=== PATIENT | male | born 1985 | race Caucasian/White ===

== ENCOUNTER 2020-06-20 07:45 | Emergency (ER) | payer OTHER, SELFPAY ==
[2020-06-20 07:50] VITALS: BP 168/106; BP 168/110; PULSE 110; PULSE 113; RESP 16; TEMP 36.7; O2SAT 100; O2SAT 99; BMI 27.1
--- NOTE | 2020-06-20 07:52 | ED.OVERDOSE ---
HPI - Overdose General Chief Complaint: ETOH/Substance Use Stated Complaint: overdose Time Seen by Provider: 06/20/20 07:51 Source: patient and EMS Mode of arrival: EMS Limitations: no limitations History of Present Illness HPI Narrative: 34-year-old male history of IV drug abuser, patient also on methadone, patient at 06:00 o'clock used 2 bags of IV heroin, patient was found by a family member in the bathroom unresponsive, patient was given by EMS nasal Narcan x3 total of 12 mg patient had Ambu bag ventilation and patient started to regain consciousness, CPR was never started. Patient feeling nauseous and vomited couple times. Patient in the emergency department is awake, alert, oriented x3. Patient declined SI or HI or hallucination. Related Data Allergies Allergy/AdvReac Type Severity Reaction Status Date / Time No Known Allergies Allergy Unverified 12/15/19 16:14 [No Known Allergies*] Review of Systems Review of Systems: All other systems are reviewed and are negative Constitutional: Reports as per HPI and Reports no additional constitutional complaints Eyes: Reports as per HPI and Reports no additional eye complaints Reports system reviewed and no additional complaints, except as documented Cardiovascular: Reports as per HPI and Reports no additional cardiovascular complaints Respiratory: Reports as per HPI and Reports no additional respiratory complaints Gastrointestinal: Reports as per HPI and Reports no additional gastrointestinal complaints Genitourinary: Reports no additional female genitourinary complaints Musculoskeletal: Reports no additional musculoskeletal complaints Skin/Breast: Reports system reviewed and no additional complaints, except as docu Psychiatric: Reports no additional psychiatric complaints Endocrine: Reports no additional endocrine complaints Hematologic/Lymphatic: Reports no additional hematologic/lymphatic complaints Allergic/Immunologic: Reports no additional allergic/immunologic complaints Reports system reviewed and no additional complaints, except as documented and Reports Abnormal speech present [facility] Past Medical History Medical History No known health problems Social History Social History Smoking Status: Current every day smoker Use of substances other than those prescribed or required for medical reasons: Yes Substance Use Type: Crack/Cocaine and Heroin Advance Directives: No Advance Directives Information Provided: No Physical Exam Vital Signs: Vital Signs: Last Vital Signs Temp 98.0 F 06/20/20 07:50 Pulse 88 06/20/20 10:33 Resp 16 06/20/20 10:33 BP 100/46 L 06/20/20 10:33 Pulse Ox 95 06/20/20 10:33 Body Mass Index 27.1 Vital signs have been reviewed as appeared to be correct. Blood pressure normal. Heart rate normal. Respiration rate normal. Temperature normal. Oxygen saturation normal. Appearance: Alert. Oriented X3. No acute distress. Head: Normal external exam. Normocephalic. Atraumatic. No Chi signs noted. No raccoon eyes noted Eyes: PERRLA. EOMI. Conjunctiva and sclera normal. Eyelids normal. ENT: TM's Normal. Pharynx normal. Uvula midline. Moist mucous membranes. No trismus noted. No drooling noted. No muffled voice noted. Neck: Normal inspection. Neck supple. FROM. No adenopathy. Thyroid Normal. No meningeal signs. No neck mass noted. CVS: Normal heart rate and rhythm. Heart sound normal. No murmurs noted. Pulses normal throughout. Respiratory: No respiratory distress. Painless inspiration. Breath sounds normal. No wheezes/rales/rhonchi noted. Chest nontender. No accessory muscle usage noted or decreased air movement noted. Abdomen: Soft and nontender. Bowel sounds normal in all 4 quadrants. No distention noted. No organomegaly noted. No visible injury noted. Back: No CVA tenderness. Full range of motion noted. Skin: Skin warm and dry. Normal skin color. Normal skin turgor. No rashes/lesions/lacerations noted. Extremities: No lower extremity edema. Extremities exhibit normal range of motion. Extremities nontender. Neuro: Oriented X 3. No motor deficit. No sensory deficit. Reflexes normal. Course Course Course Narrative: 34-year-old male brought in after found unresponsive in the bathroom after using IV heroin, patient responded to Narcan, patient was observed in the emergency department patient is back to his baseline. Patient was evaluated by our care team, patient will be referred to rehab program at [facility] just requiring COVID testing. Discharge Plan Discharge Clinical Impression: Accidental heroin overdose Qualifiers: Encounter type: initial encounter Qualified Code(s): T40.1X1A - Poisoning by heroin, accidental (unintentional), initial encounter Patient Disposition: Home, Self-Care Instructions: Adult Overdose (ED) Additional Instructions: Follow-up with primary doctor. Referrals: Shea Macdonald PA [Primary Care Provider] - 2 days
[2020-06-20 08:20] VITALS: RESP 16; O2SAT 98
[2020-06-20 09:00] VITALS: PULSE 103; O2SAT 95
--- NOTE | 2020-06-20 10:13 | PC.NURSE ---
patient no longer vomiting after medicated with SL zofran. patient sleeping off and on. wakes easily to voice.
[2020-06-20 10:33] VITALS: BP 100/46; PULSE 88; RESP 16; O2SAT 95
--- NOTE | 2020-06-20 10:46 | MHC.RECOVSUP ---
Recovery Support note: Patient is a 34 year old Mongolian speaking male who presented to [facility] ED via EMS after an accidental overdose. This verse writer met with patient to discuss recovery and treatment options. Patient reports he started using again a week or so ago and that he is interested in getting into a detox facility for treatment. Patient reports he is on methadone and finds it helpful however he has not been attending meetings recently. Patient has been referred to [facility] and his information is currently being reviewed. [facility] requested a COVID test which is being processed. Patient met with Special Education Instructor, Keanu, who discussed [employer] recovery and recovery supports with patient. Patient was receptive and accepted resources offered. This verse writer will follow up with [facility] to determine if patient has been accepted for admission. RN and MD carroll.
[2020-06-20 10:58] LABS: COVID-19 Test Negative (Negative)
--- NOTE | 2020-06-20 12:18 | MHC.RECOVSUP ---
Recovery Support note: Patient has been accepted to [facility] for a 1415 admission time. Patient has completed the phone intake. RN will complete N-N. Palliative Care Nurse to arrange transportation via [employer] or [facility] Shuttle.
== END 2020-06-20 13:47 | disposition home or self-care (01) ==
PROVIDERS: Emergency Provider Emergency Medicine; PCP Physician Assistant Medical
DX: T40.1X1A Poisoning by heroin, accidental (unintentional), initial encounter (principal); Y92.9 Unspecified place or not applicable; F11.10 Opioid abuse, uncomplicated; F14.10 Cocaine abuse, uncomplicated; Z71.51 Drug abuse counseling and surveillance of drug abuser; Z20.822 Contact with and (suspected) exposure to COVID-19
CPT/HCPCS: 36415; 87635; 99284

== ENCOUNTER 2020-07-15 09:16 | Emergency (ER) | payer OTHER, SELFPAY ==
--- NOTE | ~2020-07-15 | XR_ITS ---
EXAMINATION: XR HUMERUS, RIGHT CLINICAL INFORMATION: Redness in biceps. Concern for osteomyelitis. COMPARISON: None TECHNIQUE: AP and lateral views of the right humerus. FINDINGS: Subcutaneous soft tissue swelling is noted in the lower portion of the upper arm. No bony abnormality is demonstrated. There is no evidence for osteomyelitis. The biceps muscle appears retracted distally concerning for possible rupture. Clinical correlation will be helpful. XR/XR humerus RT IMPRESSION: 1. Question biceps rupture. 2. No bony abnormality. No evidence for osteomyelitis.
--- NOTE | ~2020-07-15 | US_ITS ---
EXAMINATION: ULTRASOUND EXTREMITY NONVASCULAR.. CLINICAL INFORMATION: Swelling, drug use. Question right biceps abscess COMPARISON: None TECHNIQUE: Limited ultrasound imaging performed above the elbow joint where patient has swelling FINDINGS: There is a heterogenous area seen with a solid and cystic debris with peripheral increased flow/vascularity just above the antecubital fossa suggestive of small abdomen abscess and phlegmon. It measures approximately 3.2 x 2.8 x 1.8 cm. US/US extremity nonvascular IMPRESSION: Likely a small abscess, phlegmon or combination superior to the right antecubital fossa.
--- NOTE | ~2020-07-15 | US_ITS ---
EXAMINATION: US VENOUS WITH DOPPLER UPPER EXTREMITY, RIGHT CLINICAL INFORMATION: Right biceps abscess. Rule out DVT COMPARISON: None TECHNIQUE: Ultrasound of the upper extremity is performed using compression sonography and color and pulse Doppler flow with assessment of augmentation of flow. There is also imaging and Doppler assessment of the jugular and subclavian veins. Spectral analysis with color-flow imaging is performed. FINDINGS: Respiratory variation, normal compression, and augmented flow are noted throughout the upper extremity including the axillary, brachial, cubital, and radial and ulnar veins. There is normal flow in the internal jugular and subclavian veins. There is no visible deep or superficial thrombophlebitis. If the patient's symptoms progress, a followup ultrasound in 5 -7 days might be of value to exclude proximal propagation from a nonvisualized distal arm vein. US/US venous duplex UE RT IMPRESSION: No DVT demonstrated in the right upper extremity.
[2020-07-15 09:48] VITALS: BP 152/80; PULSE 122; RESP 18; TEMP 37.2; O2SAT 96; BMI 27.8
--- NOTE | 2020-07-15 09:58 | ED_ITS ---
HPI - Skin/Abscess/Foreign Bdy General Chief complaint: Skin/Abscess/Foreign Body Stated complaint: ABSCESS Time Seen by Provider: 07/15/20 09:38 Source: patient Mode of arrival: ambulatory Limitations: no limitations History of Present Illness HPI narrative: Patient presents to ED for right biceps abscess. Patient denies any recent trauma to the area. States may having been devices cause little pimple and then he tried to pop up with a needle and then the swelling occurred. Patient admits to being an IV drug user but patient denies injecting IV drugs into the biceps. Patient states he injects IV drug use only into his forearm or antecubital. Related Data Previous Rx's Medication Instructions Recorded cephalexin 500 mg PO Q6H 7 Days #28 cap 07/15/20 doxycycline hyclate 100 mg PO BID #20 cap 07/15/20 naproxen 500 mg PO BID PRN #20 tab 07/15/20 Allergies Allergy/AdvReac Type Severity Reaction Status Date / Time No Known Allergies Allergy Verified 07/15/20 09:54 [No Known Allergies*] Review of Systems Review of Systems: Yes all other systems are reviewed and are negative Constitutional: Constitutional: Reports as per HPI and Reports no additional constitutional complaints Eyes: Eyes: Reports as per HPI and Reports no additional eye complaints ENT: Reports system reviewed and no additional complaints, except as documented and Reports as per HPI Cardiovascular: Cardiovascular: Reports as per HPI and Reports no additional cardiovascular complaints Respiratory: Respiratory: Reports as per HPI and Reports no additional respiratory complaints Gastrointestinal: Gastrointestinal: Reports as per HPI and Reports no additional gastrointestinal complaints Genitourinary: Genitourinary: Reports no additional male genitourinary complaints and Reports as per HPI Musculoskeletal: Musculoskeletal: Reports no additional musculoskeletal complaints and Reports as per HPI Comments: Right biceps abscess Neurologic: Reports system reviewed and no additional complaints, except as documented and Reports as per HPI Psychiatric: Psychiatric: Reports no additional psychiatric complaints and Reports as per HPI PMFSH Past Medical History Medical History No known health problems Social History Social History Alcohol intake: unknown Smoking Status: Current every day smoker Smoked in Last 30 Days: Yes Use of substances other than those prescribed or required for medical reasons: Yes Substance Use Type: Heroin Substance Use Frequency: Chronic Longstanding Last Used Substance: Just Prior to Admission Any prior treatment program specific to substance use: No Advance Directives: Yes Advance Directives Information Provided: Yes Advance Directives on File: No Physical Exam Vital Signs: Vital Signs: Last Vital Signs Temp 98.9 F 07/15/20 13:30 Pulse 65 07/15/20 13:30 Resp 18 07/15/20 13:30 BP 116/56 L 07/15/20 13:30 Pulse Ox 95 07/15/20 13:30 Body Mass Index 27.8 Const: General: cooperative, healthy appearing, comfortable, no acute distress, well developed, alert, awake and Physically active Orientat ion/consciousness: patient oriented x3 HENMT: Head: Yes normal to inspection and Yes No palpable skull fracture present Eyes: General: appearance normal, both eyes and all related structures Neck: Neck: Yes normal visual inspection, Yes full ROM, Yes no lymphadenopathy, Yes no meningeal signs, Yes trachea midline, Yes supple and No tender Chest: Chest palpation & inspection: normal inspection of the chest and normal palpation of entire chest wall Resp: Effort & Inspection: normal respiratory effort and able to speak in complete sentences Auscultation: clear to auscultation bilaterally Cardio: Jugular venous distension: no JVD Heart sounds: S1 normal heart sound present and S2 normal heart sound present GI: Inspection: Yes normal to inspection and No abdominal wall ecchymosis Palpation (GI): Soft to palpation, not firm, nontender, no guarding and not rig id Skin: Other: Right upper arm/biceps abscess. Neuro: General: patient oriented x3, no meningeal signs and CN's II-XI intact bilaterally Cranial nerves: Yes CN's II-XII intact bilaterally Extrem: Other: Right upper extremity: Positive for golf size ball mass on the right biceps with erythema, tenderness, and point of entry. Some right upper extremity negative for swelling, tenderness, or mass. Radial and brachial pulses intact. Neuro exam is intact. Patient has complete range of motion right upper extremity. Biceps does not look contracted. Psych: Appearance: grossly normal, well kempt and not disheveled Course Course Course Narrative: History physical exam indicate abscess. Patient is afebrile. Patient complains of mild pain. Patient tachycardic will give oral fluids. Patient also admits to using 2 bags of heroin this morning. Will not give narcotics due to history of substance abuse. Mode patient denies injecting IV drugs directly into biceps will send patient for ultrasound right upper extremity to make sure there is no superficial blood clot or DVT. Also will send patient for x-ray to make sure there is no osteomyelitis. Presently labs not indicated. Will recheck vital signs. Bedside ultrasound was done which showed nodular shows absent that could be drained. Plan is to drain abscess after x-ray and ultrasound reading. Reevaluation(s) Reevaluation #1: X-ray reading shows possible biceps rupture. With patient having abscess clinically and x-ray reading of biceps rupture may need to call Orthopedics to make sure abscess is not in the muscle and may need surgical intervention. Will order labs. Reevaluation #2: Vanc and Zosyn ordered. Extremity ultrasound results negative for DVT and shows superficial abscess. will call orthopedic PA on-call to see if this is the case with patient be admitted for OR incision and drainage or it could be done by me in the ER and discharge. Reevaluation #3: Spoke with PA tomorrow of orthopedic who states this is not a surgical issue and patient does not need any operating room drainage. She recommends abscess being drained the ED. As per ultrasound abscess very superficial. Spoke with patient medicine admission for IV antibiotics to help the abscess with a cellulitis heal better, but patient refused. Patient states he rahter start a trial of oral antibiotics and see if improved. MDM - Skin/Abscess/Foreign Bdy MDM Narrative Medical decision making narrative: Abscess cellulitis Lab Data Result diagrams: 07/15/20 13:07 07/15/20 13:07 Labs: Lab Results 07/15/20 07/15/20 07/15/20 Range/Units 13:07 13:07 13:07 WBC 10.0 (4.8-10.8) X10*3/uL RBC 4.52 L (4.60-5.80) X10*6/uL Hgb 13.1 L (14.0-18.0) g/dl Hct 40.3 L (42-52) % MCV 89.2 (80-98) fL MCH 29.0 (27.0-33.0) pg MCHC 32.5 (31.0-36.0) g/dl RDW 13.0 (11.0-16.0) % Plt Count 275 (160-400) X10*3/uL MPV 10.4 (9.4-12.4) fL Immature Gran % (Auto) 0.2 (0.0-0.4) % Neut % (Auto) 65.4 (45-73) % Lymph % (Auto) 22.4 (20-40) % [place] % (Auto) 10.3 (2-11) % Eos % (Auto) 1.5 (0-4) % Baso % (Auto) 0.2 (0-2) % Lymph # (Auto) 2.3 (1.2-4.9) X10*3/uL [place] # (Auto) 1.0 (0.1-1.2) X10*3/uL Eos # (Auto) 0.2 (0.0-0.4) X10*3/uL Baso # (Auto) 0.0 (0.0-0.2) X10*3/uL Abs Immat Gran (auto) 0.02 (0.00-0.03) X10*3/uL Absolute Neuts (auto) 6.6 (2.0-8.3) X10*3/uL Absolute Nucleated RBC 0.000 (0.0-0.012) X10*3/uL Nucleated RBC % (auto) 0.0 (0.0-0.2) /100WBC ESR 38 H (0-15) MM/HR PT (10.8-13.0) SEC INR (0.9-1.1) APTT (24.1-38.0) SEC Sodium 136 (135-145) mmol/L Potassium 4.5 (3.3-5.1) mmol/L Chloride 98 (96-108) mmol/L Carbon Dioxide 29 (22-29) mmol/L Anion Gap 14 (12-20) BUN 12 (9-16) mg/dL Creatinine 0.92 (0.5-1.4) mg/dL Estim Creat Clear Calc 126.5 Estimated GFR > 60 Random Glucose 94 (60-115) mg/dL Lactic Acid (0.5-2.0) mmol/L Calcium 8.7 (8.4-10.2) mg/dL Total Bilirubin 0.7 (0.0-1.0) mg/dL AST 15 (5-37) U/L ALT 14 (0-40) U/L Alkaline Phosphatase 69 (39-117) U/L C-Reactive Protein 9.11 H (< or = 0.50) mg/dL Total Protein 7.3 (6.5-8.0) g/dL Albumin 4.2 (3.5-5.0) g/dL 07/15/20 07/15/20 Range/Units 13:07 13:07 WBC (4.8-10.8) X10*3/uL RBC (4.60-5.80) X10*6/uL Hgb (14.0-18.0) g/dl Hct (42-52) % MCV (80-98) fL MCH (27.0-33.0) pg MCHC (31.0-36.0) g/dl RDW (11.0-16.0) % Plt Count (160-400) X10*3/uL MPV (9.4-12.4) fL Immature Gran % (Auto) (0.0-0.4) % Neut % (Auto) (45-73) % Lymph % (Auto) (20-40) % [place] % (Auto) (2-11) % Eos % (Auto) (0-4) % Baso % (Auto) (0-2) % Lymph # (Auto) (1.2-4.9) X10*3/uL [place] # (Auto) (0.1-1.2) X10*3/uL Eos # (Auto) (0.0-0.4) X10*3/uL Baso # (Auto) (0.0-0.2) X10*3/uL Abs Immat Gran (auto) (0.00-0.03) X10*3/uL Absolute Neuts (auto) (2.0-8.3) X10*3/uL Absolute Nucleated RBC (0.0-0.012) X10*3/uL Nucleated RBC % (auto) (0.0-0.2) /100WBC ESR (0-15) MM/HR PT 12.1 (10.8-13.0) SEC INR 1.0 (0.9-1.1) APTT 39.0 H (24.1-38.0) SEC Sodium (135-145) mmol/L Potassium (3.3-5.1) mmol/L Chloride (96-108) mmol/L Carbon Dioxide (22-29) mmol/L Anion Gap (12-20) BUN (9-16) mg/dL Creatinine (0.5-1.4) mg/dL Estim Creat Clear Calc Estimated GFR Random Glucose (60-115) mg/dL Lactic Acid 1.0 (0.5-2.0) mmol/L Calcium (8.4-10.2) mg/dL Total Bilirubin (0.0-1.0) mg/dL AST (5-37) U/L ALT (0-40) U/L Alkaline Phosphatase (39-117) U/L C-Reactive Protein (< or = 0.50) mg/dL Total Protein (6.5-8.0) g/dL Albumin (3.5-5.0) g/dL Discharge Plan Discharge Clinical Impression: Abscess of skin or subcutaneous tissue Patient Disposition: Home, Self-Care Instructions: Abscess (ED), Abscess Incision and Drainage (DC) Additional Instructions: Return to the ED immediately for worsening arm pain, chest pain, shortness of breath, fever, chills, worsening redness, or any other concerning symptoms. Return to the ED in 2 days for re-evaluation of wound and repacking. Prescriptions: New doxycycline hyclate 100 mg capsule 100 mg PO BID Qty: 20 RF: 0 cephalexin 500 mg capsule 500 mg PO Q6H 7 Days Qty: 28 RF: 0 naproxen 500 mg tablet 500 mg PO BID PRN (Reason: pain) Qty: 20 RF: 0 Stand Alone Forms: Work/School Release Interventions: ED Discharge Assessment Last Done: 07/15/20 15:23 Discharge Date/Time: 07/15/20 15:24 Print Language: Lithuanian
[2020-07-15] MEDS: Ibuprofen 800 MG TABLET PO (10:08)
[2020-07-15] MEDS: Diphth,Pertus(ACell),Tet Adult 0.5 ML SYRINGE IM (10:09)
[2020-07-15] MEDS: Lidocaine HCl 2 % MPF 5 ML VIAL INFILTRATI ×2 (10:09)
[2020-07-15 10:34] VITALS: PULSE 88; RESP 18; O2SAT 96
[2020-07-15 10:59] VITALS: RESP 18
--- NOTE | 2020-07-15 12:16 | PC.NURSE ---
PT GONE FOR US.
--- NOTE | 2020-07-15 12:42 | PC.NURSE ---
PT TOUGH STICK, SECOND RN TO TRY IV.
[2020-07-15 13:14] LABS: MANUAL DIFF FLAG NO
[2020-07-15] MEDS: 0.9 % Sodium Chloride 1,000 ML 999 ML IV (13:15)
[2020-07-15 13:16] LABS: Basophils Percent Auto 0.2 % (0-2); Eosinophils Absolute Auto 0.2 X10*3/uL (0.0-0.4); Eosinophils Percent Auto 1.5 % (0-4); Hematocrit 40.3 % (42-52); Hemoglobin 13.1 g/dl (14.0-18.0); Imm Gran Abs Auto 0.02 X10*3/uL (0.00-0.03); Imm Gran Pct Auto 0.2 % (0.0-0.4); Lymphocytes Absolute Auto 2.3 X10*3/uL (1.2-4.9); Lymphocytes Percent Auto 22.4 % (20-40); Mean Corpuscular HGB Conc 32.5 g/dl (31.0-36.0); Mean Corpuscular Volume 89.2 fL (80-98); Mean Platelet Volume 10.4 fL (9.4-12.4); Monocytes Percent Auto 10.3 % (2-11); Neutrophils Absolute Auto 6.6 X10*3/uL (2.0-8.3); Neutrophils Percent Auto 65.4 % (45-73); Platelet Count 275 X10*3/uL (160-400); Red Blood Count 4.52 X10*6/uL (4.60-5.80)
--- NOTE | 2020-07-15 13:17 | MHC.RECOVSUP ---
Recovery Support note: Patient is a 34 year old Nicaraguan speaking male who presented to [facility] ED due to an abscess. Patient is known to this automobile service writer from a previous consultation. Patient was sent to [place] for ATS on 06/20. Patient reports he lives in a tent and has not been maintaining sobriety since discharge from [facility]. This automobile service writer discussed MOUD with patient. Patient reports he has had good success with methadone in the past however he did not like having to go everyday. Patient has tried Suboxone however reports it caused him to feel nauseous. Discussed Sublocade injection with patient. Patient reports he is interested in this and that he can tolerate the Suboxone until he is able to get an injection. Discussed the [facility] with patient and provided patient with information on walk-in hours. Patient provided with number for this automobile service writer in the event that he would like an appointment outside of walk in hours.
[2020-07-15] MEDS: Piperacillin Sodium/Tazobactam 3.375 GM in 0.9 % Sodium Chloride 50 ML IV (13:28)
[2020-07-15 13:29] LABS: Prothrombin Time 12.1 SEC (10.8-13.0)
[2020-07-15 13:30] VITALS: BP 116/56; PULSE 65; RESP 18; TEMP 37.2; O2SAT 95
[2020-07-15 13:38] LABS: Alanine Aminotransferase 14 U/L (0-40); Albumin Level 4.2 g/dL (3.5-5.0); Alkaline Phosphatase 69 U/L (39-117); Anion Gap 14 (12-20); Aspartate Amino Transferase 15 U/L (5-37); Bilirubin Total 0.7 mg/dL (0.0-1.0); Blood Urea Nitrogen 12 mg/dL (9-16); C Reactive Protein 9.11 mg/dL (< or = 0.50); Calcium 8.7 mg/dL (8.4-10.2); Carbon Dioxide 29 mmol/L (22-29); Chloride 98 mmol/L (96-108); Creatinine Clr Calc Pharmacy 126.5; Estimated Glomerular Filt Rate > 60; Glucose Random 94 mg/dL (60-115); Potassium 4.5 mmol/L (3.3-5.1); Sodium 136 mmol/L (135-145); Total Protein 7.3 g/dL (6.5-8.0)
--- NOTE | 2020-07-15 13:50 | PC.NURSE ---
PT UP OOB TO BATHROOM FOR 3RD TRIP. PT APPEARING ANXIOUS NOW, COOPERATIVE, TOLERATING IV ANTIBIOTICS.
[2020-07-15] MEDS: vancomycin HCL 1,250 MG in 0.9 % Sodium Chloride 250 ML 166.67 MG IV (13:52)
[2020-07-15 14:02] LABS: Erythrocyte Sedimentation Rate 38 MM/HR (0-15)
[2020-07-15] MEDS: LORazepam 1 MG TABLET PO (14:03)
== END 2020-07-15 15:24 | disposition home or self-care (01) ==
PROVIDERS: Physician Assistant; Emergency Provider Emergency Medicine
DX: L02.413 Cutaneous abscess of right upper limb (principal); F11.10 Opioid abuse, uncomplicated; R60.0 Localized edema; F17.200 Nicotine dependence, unspecified, uncomplicated; Z71.6 Tobacco abuse counseling; Z79.899 Other long term (current) drug therapy
CPT/HCPCS: 10060; 36415; 73060; 76882; 80053; 83605; 85025; 85610; 85652; 85730; 86140; 87040; 87071; 87076; 87077; 87147; 87186; 87205; 90471; 90715; 93971; 96360; 99284; J2543; J3370

== ENCOUNTER 2020-07-17 16:55 | Emergency (ER) | payer OTHER, SELFPAY ==
[2020-07-17 18:19] VITALS: BP 110/69; PULSE 63; RESP 16; TEMP 36.8; O2SAT 100; BMI 27.7
--- NOTE | 2020-07-17 18:21 | ED.WOUNDLAC ---
HPI - Wound/Laceration General Stated Complaint: wound check Time Seen by Provider: 07/17/20 17:28 Source: patient Mode of arrival: ambulatory Limitations: no limitations History of Present Illness HPI narrative: 34-year-old male presents for wound check. Was tested positive for blood culture which could possibly be a contaminate on his prior visit on July 15, 2020. He does not report any fevers, chills, chest pain or pressure, palpitations, weakness, diaphoresis, nausea, vomiting, or any other concerning symptoms. He states that his wound is feeling much better. Onset (ago): day(s) Extremity Location: right: arm Place: other Patient tetanus UTD: Yes Context: other Associated symptoms: none Related Data Previous Rx's Medication Instructions Recorded cephalexin 500 mg PO Q6H 7 Days #28 cap 07/15/20 doxycycline hyclate 100 mg PO BID #20 cap 07/15/20 naproxen 500 mg PO BID PRN #20 tab 07/15/20 Allergies Allergy/AdvReac Type Severity Reaction Status Date / Time No Known Allergies Allergy Verified 07/15/20 09:54 [No Known Allergies*] Review of Systems Review of Systems: Constitutional: No Fever, No Chills ENT/Mouth: No Ear Pain, No Hoarseness, No sore throat Eyes: No Eye Pain, No Swelling, No Redness, No Foreign Body Cardiovascular: No Chest Pain, No SOB Respiratory: No Cough, No Dyspnea Gastrointestinal: No Nausea, No Vomiting, No Diarrhea, No abdominal Pain Genitourinary: No Dysuria, No Hematuria Musculoskeletal: positive right arm pain, No Myalgias, No Joint Swelling Skin: No Skin lacerations, No rash Neuro: No Weakness, No Numbness, No Paresthesias, No Loss of Consciousness, No Dizziness, No Headache Psych: No Anxiety/Panic, No Depression Heme/Lymph: no easy bruising, no Lymphadenopathy Endocrine: No Polyuria, No Polydipsia Yes all other systems are reviewed and are negative [facility] Past Medical History Attestation statement: The following information was validated with the patient. Source: old records reviewed Medical History No known health problems Social History Social History Alcohol intake: unknown Smoking Status: Current every day smoker Substance Use Type: Heroin Advance Directives: No Advance Directives Information Provided: Yes Physical Exam Vital Signs: Vital Signs: Last Vital Signs Temp 98.2 F 07/17/20 18:19 Pulse 63 07/17/20 18:19 Resp 16 07/17/20 18:19 BP 110/69 07/17/20 18:19 Pulse Ox 100 07/17/20 18:19 Body Mass Index 27.7 Appearance: Alert. Oriented X3. No acute distress. Eyes: Pupils equal, round and reactive to light. ENT: Pharynx normal. Neck: Normal inspection. Neck supple. CVS: Normal heart rate and rhythm. Pulses normal. Respiratory: No respiratory distress. Breath sounds normal. Abdomen: Soft and nontender. Skin: Left biceps wound with erythema, multiple track stover to bilateral upper extremities Extremities: No lower extremity edema. Moves all extremities against resistance, strength 5/5, full range of motion. Neuro: No motor deficit. No sensory deficit. Course Course Course Narrative: 34-year-old male with known abscess to biceps currently on Keflex and doxycycline presents for wound evaluation and repeat lab values for a singular positive blood culture with Gram-positive cocci. Multiple attempts for blood failed by this [employer], patient IVDA active, and is a very poor stick. Lab called for phlebotomy services. Patient eloped from the emergency department. MDM - Wound/Laceration Differential Diagnosis Differential diagnosis: Likely abscess Medical Records Attestation: I reviewed the patient's medical records. Lab Data Attestation: I reviewed the patient's lab results. Discharge Plan Discharge Clinical Impression: Wound check, abscess Patient Disposition: Elopement Instructions: Wound Infection (ED), Wound Healing and Your Diet (ED) Additional Instructions: Please return tomorrow for repeat wound check. We repeated your CBC, chemistries, lactic acid and blood cultures. You did have 1 positive blood culture which is why repeated these labs. Your wound appears to be healing well. Please continue to take your antibiotics. We will call you with your test results per your request. Thank you for choosing this emergency department for evaluation. Please follow-up with primary care physician as needed. Return to the emergency department for any new, concerning, or worsening symptoms. Prescriptions: No Action doxycycline hyclate 100 mg capsule 100 mg PO BID Qty: 20 RF: 0 cephalexin 500 mg capsule 500 mg PO Q6H 7 Days Qty: 28 RF: 0 naproxen 500 mg tablet 500 mg PO BID PRN (Reason: pain) Qty: 20 RF: 0 Interventions: ED Discharge Assessment Last Done: 07/17/20 19:10
--- NOTE | 2020-07-17 18:45 | MHC.RECOVSUP ---
? Reason for consult o Current location: [facility] o Identified substance use concern: Heroin - Support ? Intervention: o Community resources provided o Harm reduction discussion ? Plan: o Patient to follow up with [facility] after discharge ? Additional information: Met with Patient due to nurse MP request. Patient wanted information to get help at a later time to go to detox.. Patient was given [facility] info also a list of detox..
--- NOTE | 2020-07-17 19:04 | PC.NURSE ---
UNABLE TO OBTAIN PT LABS DO TO POOR VEIN ACCESS. PT WAS TOLD HE NEED TO WAIT FOR LAB TO COME DRAW HIS BLOOD PT WAS VERY IMPATIENT AND STATED HE WANTED TO LEAVE SOON LABS WERE DRAWN. ZEE SPOKE WITH PT AT BEDSIDE AND GAVE RESOURCES FOR INPATIENT REHAB PROGRAMS.
--- NOTE | 2020-07-17 19:08 | PC.NURSE ---
PT LEFT BEFORE LAB DRAW NO LONGER IN ROOM CLINIC NURSE VALERIE AWARE.
== END 2020-07-17 19:17 | disposition left against medical advice (07) ==
PROVIDERS: Emergency Provider Emergency Medicine
DX: Z48.00 Encounter for change or removal of nonsurgical wound dressing (principal); L02.413 Cutaneous abscess of right upper limb; F17.200 Nicotine dependence, unspecified, uncomplicated; F11.90 Opioid use, unspecified, uncomplicated
CPT/HCPCS: 99283; 99284

== ENCOUNTER 2020-07-18 14:43 | Emergency (ER) | payer OTHER, SELFPAY ==
[2020-07-18 14:48] VITALS: BP 136/62; PULSE 91; RESP 19; TEMP 36.8; O2SAT 97; BMI 26.4
--- NOTE | 2020-07-18 17:22 | ED_ITS ---
HPI - Wound/Laceration General Chief Complaint: Wound/Laceration Stated Complaint: Abscess recheck Source: patient Mode of arrival: ambulatory Limitations: no limitations History of Present Illness HPI narrative: 34-year-old male presents for wound check. Had an abscess drained on 07/15/2020, had a positive blood culture for Gram-positive cocci on 07/15/2020, presented to the emergency department on 07/17 for evaluation, left before lab values were drawn. Patient presents today for wound check, and lab redraw. Patient does not have any complaints, states to have full range of motion to the extremity, denies fevers, chills, or worsening infection to the right upper extremity. Onset (ago): week(s) Patient tetanus UTD: Yes Related Data Previous Rx's Medication Instructions Recorded cephalexin 500 mg PO Q6H 7 Days #28 cap 07/15/20 doxycycline hyclate 100 mg PO BID #20 cap 07/15/20 naproxen 500 mg PO BID PRN #20 tab 07/15/20 Allergies Allergy/AdvReac Type Severity Reaction Status Date / Time No Known Allergies Allergy Verified 07/15/20 09:54 [No Known Allergies*] Review of Systems Review of Systems: Constitutional: No Fever, No Chills ENT/Mouth: No Ear Pain, No Hoarseness, No sore throat Eyes: No Eye Pain, No Swelling, No Redness, No Foreign Body Cardiovascular: No Chest Pain, No SOB Respiratory: No Cough, No Dyspnea Gastrointestinal: No Nausea, No Vomiting, No Diarrhea, No abdominal Pain Genitourinary: No Dysuria, No Hematuria Musculoskeletal: positive right upper arm pain, No Myalgias, No Joint Swelling Skin: No Skin lacerations, No rash Neuro: No Weakness, No Numbness, No Paresthesias, No Loss of Consciousness, No Dizziness, No Headache Psych: No Anxiety/Panic, No Depression Heme/Lymph: no easy bruising, no Lymphadenopathy Endocrine: No Polyuria, No Polydipsia Yes all other systems are reviewed and are negative [facility] Past Medical History Attestation statement: The following information was validated with the patient. Source: old records reviewed Medical History No known health problems Social History Social History Alcohol intake: unknown Smoking Status: Current every day smoker Substance Use Type: Heroin Advance Directives: No Advance Directives Information Provided: Yes Physical Exam Vital Signs: Vital Signs: Last Vital Signs Temp 98.3 F 07/18/20 14:48 Pulse 91 07/18/20 14:48 Resp 19 07/18/20 14:48 BP 136/62 07/18/20 14:48 Pulse Ox 97 07/18/20 14:48 Body Mass Index 26.4 Appearance: Alert. Oriented X3. No acute distress. Eyes: Pupils equal, round and reactive to light. ENT: Pharynx normal. Neck: Normal inspection. Neck supple. CVS: Normal heart rate and rhythm. Pulses normal. Respiratory: No respiratory distress. Breath sounds normal. Abdomen: Soft and nontender. Skin: 0.5 cm I&D opening to the right bicep, with approximately 7 cm of indurated cellulitis circumferential, improved from yesterday's exam, Skin warm and dry. Normal skin color. Normal skin turgor. Extremities: No lower extremity edema. Neuro: No motor deficit. No sensory deficit. Course Course Course Narrative: 34-year-old male presents for re-evaluation of wound and lab draw. Wound appears to be improved, he is continuing to take his antibiotics, denies fevers, chills, or any other concerning symptoms. Would like to be discharged home as soon as possible so he go to work. Patient will be called if lab values indicate acute findings. Patient verbalized understanding of and agrees to plan of care discharge home. MDM - Wound/Laceration Differential Diagnosis Differential diagnosis: Likely abscess Medical Records Attestation: I reviewed the patient's medical records. Lab Data Attestation: I reviewed the patient's lab results. Result diagrams: 07/18/20 17:47 07/18/20 17:47 Labs: Lab Results 07/18/20 07/18/20 07/18/20 Range/Units 17:47 17:47 17:47 WBC 6.1 (4.8-10.8) X10*3/uL RBC 4.66 (4.60-5.80) X10*6/uL Hgb 13.3 L (14.0-18.0) g/dl Hct 41.7 L (42-52) % MCV 89.5 (80-98) fL MCH 28.5 (27.0-33.0) pg MCHC 31.9 (31.0-36.0) g/dl RDW 12.6 (11.0-16.0) % Plt Count 305 (160-400) X10*3/uL MPV 10.5 (9.4-12.4) fL Immature Gran % (Auto) 0.2 (0.0-0.4) % Neut % (Auto) 67.6 (45-73) % Lymph % (Auto) 25.4 (20-40) % Andrews % (Auto) 5.3 (2-11) % Eos % (Auto) 1.2 (0-4) % Baso % (Auto) 0.3 (0-2) % Lymph # (Auto) 1.5 (1.2-4.9) X10*3/uL Andrews # (Auto) 0.3 (0.1-1.2) X10*3/uL Eos # (Auto) 0.1 (0.0-0.4) X10*3/uL Baso # (Auto) 0.0 (0.0-0.2) X10*3/uL Abs Immat Gran (auto) 0.01 (0.00-0.03) X10*3/uL Absolute Neuts (auto) 4.1 (2.0-8.3) X10*3/uL Absolute Nucleated RBC 0.000 (0.0-0.012) X10*3/uL Nucleated RBC % (auto) 0.0 (0.0-0.2) /100WBC Sodium 140 (135-145) mmol/L Potassium 4.2 (3.3-5.1) mmol/L Chloride 100 (96-108) mmol/L Carbon Dioxide 27 (22-29) mmol/L Anion Gap 17 (12-20) BUN 14 (9-16) mg/dL Creatinine 1.03 (0.5-1.4) mg/dL Estim Creat Clear Calc 116.3 Estimated GFR > 60 Random Glucose 98 (60-115) mg/dL Lactic Acid 0.8 (0.5-2.0) mmol/L Calcium 9.4 D (8.4-10.2) mg/dL Discharge Plan Discharge Clinical Impression: Wound check, abscess Patient Disposition: Home, Self-Care Instructions: Abscess Follow-up (ED) Additional Instructions: You were evaluated for right bicep cellulitis and abscess. We will call you with your lab results. Please continue to take your antibiotics. Thank you for choosing this emergency department for evaluation. Please follow-up with primary care physician as needed. Return to the emergency department for any new, concerning, or worsening symptoms. Prescriptions: No Action doxycycline hyclate 100 mg capsule 100 mg PO BID Qty: 20 RF: 0 cephalexin 500 mg capsule 500 mg PO Q6H 7 Days Qty: 28 RF: 0 naproxen 500 mg tablet 500 mg PO BID PRN (Reason: pain) Qty: 20 RF: 0 Interventions: ED Discharge Assessment Last Done: 07/18/20 18:32 Discharge Date/Time: 07/18/20 19:08
[2020-07-18 17:55] LABS: MANUAL DIFF FLAG NO
[2020-07-18 18:00] LABS: Basophils Percent Auto 0.3 % (0-2); Eosinophils Absolute Auto 0.1 X10*3/uL (0.0-0.4); Eosinophils Percent Auto 1.2 % (0-4); Hematocrit 41.7 % (42-52); Hemoglobin 13.3 g/dl (14.0-18.0); Imm Gran Abs Auto 0.01 X10*3/uL (0.00-0.03); Imm Gran Pct Auto 0.2 % (0.0-0.4); Lymphocytes Absolute Auto 1.5 X10*3/uL (1.2-4.9); Lymphocytes Percent Auto 25.4 % (20-40); Mean Corpuscular HGB Conc 31.9 g/dl (31.0-36.0); Mean Corpuscular Hemoglobin 28.5 pg (27.0-33.0); Mean Corpuscular Volume 89.5 fL (80-98); Mean Platelet Volume 10.5 fL (9.4-12.4); Monocytes Absolute Auto 0.3 X10*3/uL (0.1-1.2); Monocytes Percent Auto 5.3 % (2-11); Neutrophils Absolute Auto 4.1 X10*3/uL (2.0-8.3); Neutrophils Percent Auto 67.6 % (45-73); Platelet Count 305 X10*3/uL (160-400); Red Blood Count 4.66 X10*6/uL (4.60-5.80); Red Cell Distribution Width 12.6 % (11.0-16.0); White Blood Count 6.1 X10*3/uL (4.8-10.8)
[2020-07-18 18:26] LABS: Lactic Acid 0.8 mmol/L (0.5-2.0)
[2020-07-18 18:32] LABS: Anion Gap 17 (12-20); Blood Urea Nitrogen 14 mg/dL (9-16); Calcium 9.4 mg/dL (8.4-10.2); Carbon Dioxide 27 mmol/L (22-29); Chloride 100 mmol/L (96-108); Creatinine Clr Calc Pharmacy 116.3; Estimated Glomerular Filt Rate > 60; Glucose Random 98 mg/dL (60-115); Potassium 4.2 mmol/L (3.3-5.1); Sodium 140 mmol/L (135-145)
== END 2020-07-18 19:08 | disposition home or self-care (01) ==
PROVIDERS: Nurse Practitioner Family; Emergency Provider Internal Medicine
DX: L02.413 Cutaneous abscess of right upper limb (principal); F11.90 Opioid use, unspecified, uncomplicated; Z48.00 Encounter for change or removal of nonsurgical wound dressing; F17.200 Nicotine dependence, unspecified, uncomplicated; Z71.6 Tobacco abuse counseling
CPT/HCPCS: 36415; 80048; 83605; 85025; 87040; 99283

== ENCOUNTER 2021-07-08 11:20 | Emergency (ER) | payer OTHER, SELFPAY ==
[2021-07-08 11:32] VITALS: BP 142/80; PULSE 69; O2SAT 99; BMI 25.0
--- NOTE | 2021-07-08 11:34 | ED_ITS ---
HPI - Overdose General Stated Complaint: XANAX OD,DIFF TO AROUSE PER EMS Time Seen by Provider: 07/08/21 11:22 Source: patient and EMS Mode of arrival: EMS Limitations: no limitations History of Present Illness HPI Narrative: Patient comes to the emergency room by EMS. Earlier this morning, patient was found unresponsive by his mother. When EMS arrived, patient was awake alert and oriented, no Narcan given. The patient states that he usually takes Xanax at night to help him with anxiety. This morning he took an extra dose of Xanax to get high. Patient denies using any other drugs or alcohol. He states that he is being prescribed Xanax from a clinic . Patient denies suicidal or homicidal ideation. Patient states that at this time, he feels slightly somnolent but otherwise he feels completely normal, no other complaints. Related Data Previous Rx's Medication Instructions Recorded cephalexin 500 mg capsule 500 mg PO Q6H 7 Days #28 cap 07/15/20 doxycycline hyclate 100 mg capsule 100 mg PO BID #20 cap 07/15/20 naproxen 500 mg tablet 500 mg PO BID PRN #20 tab 07/15/20 Allergies Allergy/AdvReac Type Severity Reaction Status Date / Time No Known Allergies Allergy Verified 07/15/20 09:54 [No Known Allergies*] Review of Systems Review of Systems: Constitutional : No Weight loss, No Fever, No Chills, No Night Sweats, No Fatigue, No Malaise, feeling somnolent ENT/Mouth : No Hearing loss, No Ear Pain, No Nasal Congestion, No Sinus Pain, No Hoarseness, No sore throat, No Rhinorrhea, No Swallowing Difficulty Eyes: No Eye Pain, No Swelling, No Redness, No Foreign Body, No Discharge, No Vision Changes Cardiovascular : No Chest Pain, No SOB, No Dyspnea on Exertion, No Orthopnea, No Edema, No Palpitations Respiratory : No Cough, No Sputum, No Wheezing, No Smoke Exposure, No Dyspnea Gastrointestinal : No Nausea, No Vomiting, No Diarrhea, No Constipation, No abdominal Pain, No Hematochezia, No Melena Genitourinary : no irregular bleeding, No Dysuria, No Urinary Frequency, No Hematuria, No Urinary Incontinence, No Urgency, No Flank Pain, No Urinary Flow Changes, No Hesitancy Musculoskeletal : No joint pain, No Myalgias, No Joint Swelling Skin : No Skin Lesions, No rash Neuro : No Weakness, No Numbness, No Paresthesias, No Loss of Consciousness, No Dizziness, No Headache Psych : No Anxiety/Panic, No Depression, No SI/HI/AH/VH, No Social Issues, Heme/Lymph: No Bruising, No Bleeding,No Lymphadenopathy Endocrine : No Polyuria, No Polydipsia, No Temperature Intolerance [facility] Past Medical History Medical History (Updated 07/08/21 @ 11:41 by Liyah Zarate MD) Anxiety No known health problems Substance abuse Social History Social History Alcohol intake: unknown Substance Use Type: Heroin Physical Exam Const: Other: Appearance: Alert. Oriented X3. No acute distress. Eyes: Pupils equal, round and reactive to light. ENT: Pharynx normal. Neck: Normal inspection. Neck supple. No lymph nodes noted. No crepitus CVS: Normal heart rate and rhythm. Pulses normal. Normal S1 and S2 Respiratory: No respiratory distress. Breath sounds normal. No Wheezing. No rales Abdomen: Soft and nontender. No rigidity. No distention. Skin: Skin warm and dry. Normal skin color. Normal skin turgor. Extremities: No lower extremity edema. No Lacerations. No Rash Neuro: Oriented X 3. No motor deficit. No sensory deficit. Moving all extremities. No slurred speech. CN 2 through 12 grossly intact Psych: calm, cooperative, normal affect Course Course Course Narrative: Patient was not Narcan. Patient is awake and alert. Patient isn't suicidal homicidal, patient asking to be discharged. At this time, patient is clinically sober. Patient declined CARE/SUDE consult, or resource recovery engineer Carline reviewed, patient does have prescriptions Xanax, only for Sublocade Discharge Plan Discharge Clinical Impression: Accidental overdose Patient Disposition: Home, Self-Care Instructions: Benzodiazepine Overdose (ED) Additional Instructions: Please follow-up with your primary care physician tomorrow. If you have any worsening or new symptoms, please return to the emergency room or call 911 Prescriptions: No Action doxycycline hyclate 100 mg capsule 100 mg PO BID Qty: 20 0RF cephalexin 500 mg capsule 500 mg PO Q6H 7 Days Qty: 28 0RF naproxen 500 mg tablet 500 mg PO BID PRN (Reason: pain) Qty: 20 0RF
[2021-07-08 11:36] VITALS: BP 140/79; PULSE 78; RESP 17; TEMP 36.6; O2SAT 98
--- NOTE | 2021-07-08 11:42 | PC.NURSE ---
pt BIBA, mom found pt semi responsive at home. pt reports he took his dose of xanex 2mg and took a dose last night as well. pt rx for anx. pt alert and ordiented, calm and cooperative. no SI, HI.
== END 2021-07-08 12:26 | disposition home or self-care (01) ==
LOC: HO.ED 12:02
PROVIDERS: Emergency Provider Emergency Medicine
DX: R40.0 Somnolence (principal); T42.4X1A Poisoning by benzodiazepines, accidental (unintentional), initial encounter; Y92.013 Bedroom of single-family (private) house as the place of occurrence of the external cause
CPT/HCPCS: 99282; 99283

== ENCOUNTER 2021-09-16 10:28 | Emergency (ER) | payer OTHER, SELFPAY ==
[2021-09-16 10:36] VITALS: BP 131/84; BP 154/78; PULSE 64; PULSE 69; PULSE 78; RESP 12; RESP 18; TEMP 36.7; O2SAT 94; O2SAT 95; O2SAT 96; BMI 24.4
--- NOTE | 2021-09-16 10:40 | ED.PSYCH ---
HPI - Psych General Chief Complaint: ETOH/Substance Use Stated Complaint: SUBSTANCE ABUSE Time Seen by Provider: 09/16/21 10:39 Source: patient Mode of arrival: EMS Limitations: no limitations History of Present Illness HPI Narrative: had been doing well on sublicaide but missed last injection about a week ago and started using heroin again used 2 bags today found sleeping in car no trauma no narcan given MD complaint: substance abuse Onset (ago): week(s) (1) Duration: intermittent History of same: Yes Relieving factors: none Exacerbating factors: drug use Context: recent drug abuse Associated psychiatric symptoms: none Associated symptoms: denies other symptoms Treatments prior to arrival: none Related Data Previous Rx's Medication Instructions Recorded cephalexin 500 mg capsule 500 mg PO Q6H 7 days #28 caps 07/15/20 doxycycline hyclate 100 mg capsule 100 mg PO BID #20 caps 07/15/20 naproxen 500 mg tablet 500 mg PO BID PRN pain #20 tabs 07/15/20 buprenorphine 8 mg-naloxone 2 mg 1 film buccal BID 7 days #14 ea 09/16/21 sublingual film (Suboxone) Allergies Allergy/AdvReac Type Severity Reaction Status Date / Time No Known Allergies Allergy Verified 07/15/20 09:54 [No Known Allergies*] Review of Systems Review of Systems: Constitutional : NNo Fever, No Chills ENT/Mouth : No sore throat, No Rhinorrhea Cardiovascular : No Chest Pain, No SOB Respiratory : No Cough, No Sputum, No Wheezing Gastrointestinal : No Nausea, No Vomiting, No Diarrhea Musculoskeletal : No joint pain, No Myalgias, No Joint Swelling Skin : No Skin Lesions, No rash Neuro : No Weakness, No Numbness, No Dizziness, No Headache Psych : No Anxiety/Panic, No Depression PMFSH Past Medical History Attestation statement: The following information was validated with the patient. Medical History Anxiety No known health problems Substance abuse Social History Social History Alcohol intake: unknown Patient Tobacco Use Status: Current someday Tobacco user Substance Use Type: Heroin Advance Directives: No Advance Directives Information Provided: No Physical Exam Vital Signs: Vital Signs: Last Vital Signs Temp 98.0 F 09/16/21 10:36 Pulse 64 09/16/21 10:36 Resp 12 09/16/21 10:36 BP 131/84 09/16/21 10:36 Pulse Ox 94 09/16/21 10:36 O2 Del Method 09/16/21 10:36 BMI result Body Mass Index 24.4 Appearance: Alert. Oriented X3. No acute distress. Eyes: Pupils equal, round and reactive to light. ENT: Pharynx normal. Neck: Normal inspection. Neck supple. CVS: Normal heart rate and rhythm. Pulses normal. Respiratory: No respiratory distress. Breath sounds normal. Abdomen: Soft and non-tender. Skin: Skin warm and dry. Normal skin color. Normal skin turgor. Extremities: No lower extremity edema. Neuro: Oriented X 3. No motor deficit. No sensory deficit. Course Course Course Narrative: no narcan needed stable for DC MDM - Psych MDM Narrative Medical decision making narrative: 36 yo male with hx of anxiety, used heroin x 2 bags today - seen by our addiction team in ED - denies wanting detox or CARE team consult, he agrees to narcan take home. He can follow up with his clinic for sublicaide but plan might be to send home with suboxone and start on suboxone until he can get his injection - patient agrees to dosing will defer to Ese Morris NP. Discharge Plan Discharge Clinical Impression: Opiate abuse, episodic Patient Disposition: Home, Self-Care Instructions: Opioid Use Disorder (ED) Additional Instructions: return to ED for any worsening symptoms or concerns please follow up with your clinic for further treatment of your opiate use Prescriptions: New buprenorphine-naloxone [Suboxone] 8-2 mg film 1 film buccal BID 7 Days Qty: 14 0RF No Action doxycycline hyclate 100 mg capsule 100 mg PO BID Qty: 20 0RF cephalexin 500 mg capsule 500 mg PO Q6H 7 Days Qty: 28 0RF naproxen 500 mg tablet 500 mg PO BID PRN (Reason: pain) Qty: 20 0RF
[2021-09-16] MEDS: Naloxone HCl Nasal TAKE HOME 4 MG SPRAY NOSTRILALT (11:43)
--- NOTE | 2021-09-16 11:43 | PC.NURSE ---
Patient given take home narcan
--- NOTE | 2021-09-16 16:08 | MHC.RECOVRN ---
Addendum entered by Ese Morris 09/16/21 16:17: Pt transported to [facility] via [facility]. Original Note: Met with pt in ED after pt was found sleeping in his car by [employer]. Pt reports he had not used yet today, last use last night, however, [employer] instructed he come to the hospital. Pt had been living with his mother in [place], however, mother needed time to herself so pt has been sleeping in his car. Pt had been receving Sublocade at [facility] on [address] x 6-7 months, however, he missed his last appt and has been using heroin (1-2 bundles daily, IN and IV) for about a week. Pt would like to resume Sublocade. Pt educated regarding safe use as well as supplies available at [facility]. Pt declines ATS at this time due to having a job at a [employer] and does not want to jeopardize that. Pt educated regarding Sublocade having a 2 week window after injection due date and use of Suboxone to bridge to next appointment. Pt verbalizes understanding. Pt will be sent a 1 week prescription of Suboxone 8 mg BID. Pt educated regarding appropriate dosing. Pt plans to follow up at [facility], however, was also educated about the [facility]. Pt provided with t/w contact information if needed. Discussed with provider.
== END 2021-09-16 11:51 | disposition home or self-care (01) ==
PROVIDERS: Emergency Provider Emergency Medicine
DX: F11.19 Opioid abuse with unspecified opioid-induced disorder (principal); F17.200 Nicotine dependence, unspecified, uncomplicated; Z79.899 Other long term (current) drug therapy; Z71.6 Tobacco abuse counseling; Z71.51 Drug abuse counseling and surveillance of drug abuser
CPT/HCPCS: 99284

== ENCOUNTER 2021-10-11 23:21 | Emergency (ER) | payer OTHER, SELFPAY ==
[2021-10-11 23:27] VITALS: BP 124/81; PULSE 83; RESP 18; TEMP 36.6; O2SAT 96; BMI 25.7
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
[2021-10-12] MEDS: Nicotine 14 MG PATCH.TD24 TRANSDERMA (00:20)
[2021-10-12 00:36] LABS: Basophils Percent Auto 0.5 % (0-2); Eosinophils Absolute Auto 0.3 X10*3/uL (0.0-0.4); Eosinophils Percent Auto 4.3 % (0-4); Hematocrit 47.6 % (42.0-52.0); Hemoglobin 16.5 g/dl (14.0-18.0); Imm Gran Abs Auto 0.02 X10*3/uL (0.00-0.03); Imm Gran Pct Auto 0.3 % (0.0-0.4); Lymphocytes Absolute Auto 3.1 X10*3/uL (1.2-4.9); Lymphocytes Percent Auto 50.7 % (20-40); MANUAL DIFF FLAG NO; Mean Corpuscular HGB Conc 34.7 g/dl (31.0-36.0); Mean Corpuscular Hemoglobin 30.7 pg (27.0-33.0); Mean Corpuscular Volume 88.6 fL (80.0-98.0); Mean Platelet Volume 11.4 fL (9.4-12.4); Monocytes Absolute Auto 0.4 X10*3/uL (0.1-1.2); Monocytes Percent Auto 6.2 % (2-11); Neutrophils Absolute Auto 2.3 x10*3/uL (2.0-8.3); Platelet Count 175 X10*3/uL (160-400); Red Blood Count 5.37 X10*6/uL (4.60-5.80); Red Cell Distribution Width 14.4 % (11.0-16.0); White Blood Count 6.1 X10*3/uL (4.8-10.8)
[2021-10-12 00:50] LABS: Amphetamine Screen Urine Not Detected (Not Detect); Barbiturates, Urine Not Detected (Not Detect); Benzodiazepines Screen Urine Not Detected (Not Detect); Cannabinoid Screen Urine Not Detected (Not Detect); Cocaine Screen Urine POSITIVE (Not Detect); Fentanyl, urine POSITIVE (Not Detect); Opiate Screen Urine Not Detected (Not Detect); Phencyclidine Screen Urine Not Detected (Not Detect)
[2021-10-12 00:56] LABS: Alanine Aminotransferase 29 U/L (0-40); Albumin Level 4.4 g/dL (3.5-5.0); Alkaline Phosphatase 74 U/L (39-117); Anion Gap 14 (12-20); Aspartate Amino Transferase 28 U/L (5-37); Bilirubin Direct 0.2 mg/dL (0.0-0.5); Bilirubin Total 0.3 mg/dL (0.0-1.0); Blood Urea Nitrogen 11 mg/dL (9-16); Calcium 8.8 mg/dL (8.4-10.2); Carbon Dioxide 25 mmol/L (22-29); Chloride 111 mmol/L (96-108); Creatinine Clr Calc Pharmacy 113.1; Estimated Glomerular Filt Rate > 60; Ethanol 266 mg/dL; Glucose Random 105 mg/dL (60-115); Magnesium 2.2 mg/dL (1.6-2.6); Sodium 146 mmol/L (135-145); Total Protein 7.2 g/dL (6.5-8.0)
[2021-10-12 00:58] LABS: COVID-19 Test Negative (Negative); IDNOW Serial# 08D9AD1C
[2021-10-12 01:12] LABS: Salicylate < 5.0 mg/dL (15-30)
[2021-10-12 02:11] LABS: Acetaminophen LAB < 1 mcg/mL (<30)
--- NOTE | 2021-10-12 06:14 | PC.NURSE ---
Patient slept through the night, no distress observed/reported, asymptomatic of withdrawal, care team/recovery team for detox consult, patient is not on any medication, VSS, behavior appropriate and non concerning, will continue to monitor.
--- NOTE | 2021-10-12 07:07 | PC.NURSE ---
patient appears to remain asleep at present respirations are even and unlabored patient aooears in no distress
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
== END 2021-10-12 09:40 | disposition home or self-care (01) ==
PROVIDERS: Physician Assistant; Emergency Provider Student in an Organized Health Care Education/Training Program
DX: F10.120 Alcohol abuse with intoxication, uncomplicated (principal); Y90.8 Blood alcohol level of 240 mg/100 ml or more; R45.1 Restlessness and agitation; F14.90 Cocaine use, unspecified, uncomplicated; F12.90 Cannabis use, unspecified, uncomplicated; F19.10 Other psychoactive substance abuse, uncomplicated; F17.200 Nicotine dependence, unspecified, uncomplicated; Z20.822 Contact with and (suspected) exposure to COVID-19
CPT/HCPCS: 36415; 80048; 80076; 80143; 80179; 80307; 82077; 82550; 83735; 85025; 87635; 99283; 99284

== ENCOUNTER 2024-01-19 06:20 | Emergency (ER) | payer MEDICAID, SELFPAY ==
[2024-01-19] VITALS (17 sets, daily range): BP systolic 0–187; BP diastolic 0–108; PULSE 63–106; RESP 12–25; TEMP 36.3–37.3; O2SAT 84–99; BMI 23.3
--- NOTE | ~2024-01-19 | CT_ITS ---
EXAMINATION: CT CERVICAL SPINE WITHOUT CONTRAST CLINICAL INFORMATION: Neck pain, trauma. COMPARISON: None available. TECHNIQUE: Multiple helical unenhanced images were acquired through the cervical spine. Multiplanar computer reformatted images were acquired from the dataset in the sagittal and coronal plane. This CT examination was performed using dose optimization techniques as appropriate, variously including the following: *Automated exposure control *Adjustment of mA and/or kV according to patient size (this includes techniques or standardized protocols for targeted exams where dose is matched to indication/reason for exam; i.e. extremities or head) *Use of iterative reconstruction technique DLP: 431 mGy-cm FINDINGS: CT examination of the cervical spine shows no prevertebral soft tissue swelling. Vertebral body height and alignment are maintained. No acute fracture or subluxation is evident. The odontoid process, cervicothoracic and cervical medullary junctions are normal. There are no bone lesions. Stylohyoid ligament calcification is noted, which can be a cause of neck pain or dysphagia. CT/CT cervical spine wo IV con IMPRESSION: 1. No acute cervical spine fracture or subluxation. Fleischner guidelines were followed. . Electronically signed by: Hiram Aguilar MD 01/19/2024 11:19 AM EDT
--- NOTE | ~2024-01-19 | XR_ITS ---
EXAMINATION: XR HAND, RIGHT CLINICAL INFORMATION: Fall. COMPARISON: Right hand films dated 01/12/2017. TECHNIQUE: PA, lateral, and oblique views of the right hand. FINDINGS: Old fracture deformity of the fifth metacarpal bone is seen. No acute fracture or dislocation is seen. No radiopaque foreign body noted in the soft tissues. XR/XR hand RT min 3V IMPRESSION: 1. No acute fracture or dislocation. 2. Old fracture deformity of fifth metacarpal bone again noted. Electronically signed by: Sue Tom MD 01/19/2024 11:36 AM EDT
--- NOTE | ~2024-01-19 | CT_ITS ---
EXAMINATION: CT HEAD WITHOUT CONTRAST CLINICAL INFORMATION: Head trauma, fall COMPARISON: None available. TECHNIQUE: Contiguous axial imaging was performed from the skull base to vertex without intravenous administration of contrast. This CT examination was performed using dose optimization techniques as appropriate, variously including the following: *Automated exposure control *Adjustment of mA and/or kV according to patient size (this includes techniques or standardized protocols for targeted exams where dose is matched to indication/reason for exam; i.e. extremities or head) *Use of iterative reconstruction technique DLP: 755 mGy-cm FINDINGS: The ventricles and sulci are normal in size and configuration. No acute hemorrhage, mass effect or shift is evident. [place]-white differentiation is maintained. In the posterior fossa, the brainstem, cerebellum and fourth ventricle image normally. The orbits and calvarium are intact. The paranasal sinuses and mastoid air cells are well pneumatized and clear. There is a right frontal scalp hematoma. CT/CT head/brain wo IV con IMPRESSION: Right frontal scalp hematoma. No acute intracranial hemorrhage, mass effect or shift. Electronically signed by: Hiram Aguilar MD 01/19/2024 11:17 AM EDT
[2024-01-19] MEDS: Haloperidol Lactate 5 MG/ML VIAL IM (06:25)
[2024-01-19] MEDS: Midazolam HCl/PF 2 MG/2 ML VIAL IM (06:25)
--- NOTE | 2024-01-19 06:26 | ECG_ITS ---
Test Reason : OD Blood Pressure : / mmHG Vent. Rate : 073 BPM Atrial Rate : 073 BPM P-R Int : 140 ms QRS Dur : 088 ms QT Int : 530 ms P-R-T Axes : 067 052 063 degrees QTc Int : 583 ms Normal sinus rhythm Cannot rule out Inferior infarct , age undetermined Prolonged QT Abnormal ECG No previous ECGs available Referred By: Venkata Olivier Electronically Signed By:Adam Pina
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
--- NOTE | 2024-01-19 06:58 | ED_ITS ---
HPI - Overdose General Chief Complaint: Overdose Stated Complaint: OD Time Seen by Provider: 01/19/24 06:48 Source: EMS and old records reviewed Mode of arrival: EMS Limitations: altered mental status History of Present Illness ED Provider: Neyda Ortiz PA-C HPI Narrative: 38 yo male with history of alcohol use disorder, polysubstance abuse who presents to the ER via EMS for evaluation of an unwitnessed fall and altered mental status. He was found down with a scrape on his forehead, a scrape on his right hand. He was minimally responsive and given 4 mg of intranasal Narcan. He then became combative and uncooperative. He was agitated and not following directions. Unable to obtain history. Intent: unwilling to say Treatments Prior to Arrival: narcan Related Data Home Medications ?Medication ?Instructions ?Recorded ?Confirmed No Known Home Meds 10/11/21 10/11/21 Allergies Allergy/AdvReac Type Severity Reaction Status Date / Time No Known Allergies Allergy Verified 01/19/24 06:34 [No Known Allergies*] Review of Systems 2 Review of Systems: Yes Unobtainable due to mental status PMFSH Past Medical History Medical History Anxiety No known health problems Substance abuse Social History Social History Alcohol intake: unknown Patient Tobacco Use Status: Current someday Tobacco user Substance Use Type: Heroin Advance Directives: Yes Advance Directives on File: Yes Advance Directives Date on File: 01/19/24 Do you have a plan to hurt others: No Plan Physical Exam 2 Vital Signs: Vital Signs: Last Vital Signs Temp 99.2 F 01/19/24 19:14 Pulse 82 01/19/24 19:14 Resp 14 01/19/24 19:14 BP 137/84 01/19/24 19:14 Pulse Ox 96 01/19/24 19:14 O2 Del Method Room Air 01/19/24 19:14 O2 Flow Rate 2 01/19/24 12:06 BMI result Body Mass Index 23.3 Appearance: Sleeping, restless young male in 4 point restraints, agitated Head: normocephalic, superficial abrasion to the right side of his head with associated swelling. Face is flushed Eyes: Pupils pinpoint equal, round and reactive to light. ENT: Pharynx normal. No tonsillar swelling or exudate. Neck: Normal inspection. Neck supple. CVS: Normal heart rate and rhythm. Pulses normal. Respiratory: No respiratory distress. Breath sounds normal. Abdomen: Soft and nontender. +BS x4 Skin: Skin warm and dry. Normal skin color. Normal skin turgor. No rashes. Extremities: No lower extremity edema. No joint swelling. Compartments are soft and compressible Neuro/psych: Moving all 4 extremities, restless and agitated not following commands Course Reevaluation(s) Reevaluation #1: Patient briefly aroused, unable to recall events of this morning. Quickly fell back asleep and unable to maintain consciousness. Will continue to monitor pending improvement in mental status Time: 15:27 Reevaluation #2: Patient alert, verbal, has no recollection of what occurred prior to his arrival to the hospital. When asked, he does admit to polysubstance use, he is interested in assistance with detox. He states that he was actually due to have a bed today at [facility] is interested in pursuing this. Given the time, will obtain care team evaluation for assistance with detox bed. Contacts were made, he was advised that he can contact [facility] himself to obtain a bed there. Patient does not have interest in this, he would particularly like to go to [facility], he denies SI/HI. He is ambulatory with a steady gait. Do not see any reason that he would need to be held here for safety concern. He is calm and cooperative. He plans to contact [facility] tomorrow for admission which I feel is reasonable at this time. Stable for discharge Time: 19:00 Medications Administered Discontinued Medications Generic Name Dose Route Start Last Admin Trade Name Freq PRN Reason Stop Dose Admin Haloperidol Lactate 5 mg 01/19/24 06:25 01/19/24 06:25 Haloperidol Lactate 5 Mg/Ml Vial IM 01/19/24 06:26 5 mg ONCE ONE Administration Lorazepam 2 mg 01/19/24 07:15 01/19/24 07:43 Lorazepam 2 Mg/Ml Vial IM 01/19/24 07:16 2 mg ONCE ONE Administration Midazolam HCl 2 mg 01/19/24 06:35 01/19/24 06:25 Midazolam Hcl/Pf 2 Mg/2 Ml Vial IM 01/19/24 06:36 2 mg ONCE ONE Administration Medical Decision Making Medical Decision Making [facility] Narrative: 88-year-old male with history of alcohol use disorder, polysubstance use presents to the ER for evaluation after he was found down, unresponsive with signs of trauma. He had a head laceration and a superficial laceration to the right hand. He was agitated and combative after Narcan. Protecting his own airway and hemodynamically stable. He required chemical restraints and physical restraints for unsafe behaviors. Differential Diagnosis Differential Diagnoses: The differential diagnosis associated with the presentation includes Unintentional polysubstance overdose, alcohol intoxication, seizure, brain bleed Admission/Observation Consideration of admission/observation: Escalation of care including admission/observation considered Lab Data [facility] Lab Attestation statement: I reviewed the patient's lab results. No leukocytosis, no anemia, normal CPK 01/19/24 07:02 01/19/24 07:02 Labs: Lab Results 01/19/24 01/19/24 Range/Units 07:02 12:56 WBC 4.9 (4.8-10.8) X10*3/uL RBC 5.88 H (4.60-5.80) X10*6/uL Hgb 17.6 (14.0-18.0) g/dl Hct 51.2 (42.0-52.0) % MCV 87.1 (80.0-98.0) fL MCH 29.9 (27.0-33.0) pg MCHC 34.4 (31.0-36.0) g/dl RDW 15.5 (11.0-16.0) % Plt Count 177 (160-400) X10*3/uL MPV 10.6 (9.4-12.4) fL Immature Gran % (Auto) 0.4 (0.0-0.4) % Neut % (Auto) 41.3 L (45-73) % Lymph % (Auto) 45.3 H (20-40) % [place] % (Auto) 9.9 (2-11) % Eos % (Auto) 2.5 (0-4) % Baso % (Auto) 0.6 (0-2) % Lymph # (Auto) 2.2 (1.2-4.9) X10*3/uL [place] # (Auto) 0.5 (0.1-1.2) X10*3/uL Eos # (Auto) 0.1 (0.0-0.4) X10*3/uL Baso # (Auto) 0.0 (0.0-0.2) X10*3/uL Abs Immat Gran (auto) 0.02 (0.00-0.03) X10*3/uL Absolute Neuts (auto) 2.0 (2.0-8.3) x10*3/uL Absolute Nucleated RBC 0.000 (0.0-0.012) X10*3/uL Nucleated RBC % (auto) 0.0 (0.0-0.2) /100WBC Sodium 147 H (135-145) mmol/L Potassium 4.0 (3.3-5.1) mmol/L Chloride 107 (96-108) mmol/L Carbon Dioxide 25 (22-29) mmol/L Anion Gap 19 (12-20) BUN 8 L (9-16) mg/dL Creatinine 0.86 (0.5-1.4) mg/dL Estim Creat Clear Calc 130.3 Estimated GFR > 60 Random Glucose 111 (60-115) mg/dL Calcium 9.4 D (8.4-10.2) mg/dL Magnesium 2.2 (1.6-2.6) mg/dL Total Bilirubin 0.7 (0.0-1.0) mg/dL AST 64 H (5-37) U/L ALT 52 H (0-40) U/L Alkaline Phosphatase 91 (39-117) U/L Total Creatine Kinase 161 (38-174) U/L Total Protein 8.1 H (6.5-8.0) g/dL Albumin 4.4 (3.5-5.0) g/dL Urine Opiates Screen POSITIVE H (Not Detect) Ur Buprenorphine Scrn Positive H (Not Detect) ng/mL Ur Oxycodone Screen Not Detected (Not Detect) ng/mL Urine Methadone Screen Not Detected (Not Detect) ng/mL Urine Fentanyl Screen POSITIVE H (Not Detect) Ur Barbiturates Screen Not Detected (Not Detect) Ur Phencyclidine Scrn Not Detected (Not Detect) Ur Amphetamines Screen Not Detected (Not Detect) U Benzodiazepines Scrn POSITIVE H (Not Detect) Urine Cocaine Screen POSITIVE H (Not Detect) U Marijuana (THC) Screen Not Detected (Not Detect) Ethyl Alcohol 224 mg/dL Independent Historian Clinical information obtained from an independent historian. History obtained from or confirmed by: EMS External Record Review External record reviewed: Outpatient record, Prior outpatient labs and Prior outpatient radiology Prescription Management I considered prescription management with: Other (Antipsychotic) Chronic Conditions Patient?s care impacted by: Other (Alcohol use disorder and polysubstance abuse) Social Determinants Patient?s care significantly limited by Social Determinants of Health including: Problems related to primary support group and Other Social Determinant of Health Discharge Plan Discharge Clinical Impression: Alcohol intoxication Qualifiers: Complication of substance-induced condition: with delirium Qualified Code(s): F 10.921 - Alcohol use, unspecified with intoxication delirium Patient Disposition: Home, Self-Care Additional Instructions: You were offered assistance to call [facility] for detox bed but have declined. You were interested in pursuing a bed at [facility], I recommend that you call them 1st thing tomorrow morning to arrange this. Refrain from drug/alcohol usage. Prescriptions: No Action No Known Home Meds Print Language: Turkmen
--- NOTE | 2024-01-19 07:04 | PC.NURSE ---
20G placed in right upper arm, labs obtained and sent. IV wrapped with gauze.
[2024-01-19 07:07] LABS: MANUAL DIFF FLAG NO
[2024-01-19 07:10] LABS: Basophils Percent Auto 0.6 % (0-2); Eosinophils Absolute Auto 0.1 X10*3/uL (0.0-0.4); Eosinophils Percent Auto 2.5 % (0-4); Hematocrit 51.2 % (42.0-52.0); Hemoglobin 17.6 g/dl (14.0-18.0); Imm Gran Abs Auto 0.02 X10*3/uL (0.00-0.03); Imm Gran Pct Auto 0.4 % (0.0-0.4); Lymphocytes Absolute Auto 2.2 X10*3/uL (1.2-4.9); Lymphocytes Percent Auto 45.3 % (20-40); Mean Corpuscular HGB Conc 34.4 g/dl (31.0-36.0); Mean Corpuscular Hemoglobin 29.9 pg (27.0-33.0); Mean Corpuscular Volume 87.1 fL (80.0-98.0); Mean Platelet Volume 10.6 fL (9.4-12.4); Monocytes Absolute Auto 0.5 X10*3/uL (0.1-1.2); Monocytes Percent Auto 9.9 % (2-11); Neutrophils Percent Auto 41.3 % (45-73); Platelet Count 177 X10*3/uL (160-400); Red Blood Count 5.88 X10*6/uL (4.60-5.80); Red Cell Distribution Width 15.5 % (11.0-16.0); White Blood Count 4.9 X10*3/uL (4.8-10.8)
[2024-01-19 07:29] LABS: Alanine Aminotransferase 52 U/L (0-40); Albumin Level 4.4 g/dL (3.5-5.0); Alkaline Phosphatase 91 U/L (39-117); Anion Gap 19 (12-20); Aspartate Amino Transferase 64 U/L (5-37); Bilirubin Total 0.7 mg/dL (0.0-1.0); Blood Urea Nitrogen 8 mg/dL (9-16); Calcium 9.4 mg/dL (8.4-10.2); Carbon Dioxide 25 mmol/L (22-29); Chloride 107 mmol/L (96-108); Creatinine Clr Calc Pharmacy 130.3; Estimated Glomerular Filt Rate > 60; Ethanol 224 mg/dL; Glucose Random 111 mg/dL (60-115); Magnesium 2.2 mg/dL (1.6-2.6); Sodium 147 mmol/L (135-145); Total Protein 8.1 g/dL (6.5-8.0)
[2024-01-19] MEDS: LORazepam 2 MG/ML VIAL IM (07:43)
--- NOTE | 2024-01-19 11:02 | PC.NURSE ---
Patient resting comfortably in cardoza bed, grunting and making noises at times, awaiting improvement in symptoms
--- NOTE | 2024-01-19 12:18 | PC.NURSE ---
pt remains to appear asleep at this time. calm/cooperative. vss and up to date. pt remains on 2L via NC at this time. no sob/wob noted. respirations even/unlabored. 1:1 sitter present for safety precautions. plan of care ongoing.
--- NOTE | 2024-01-19 13:11 | PC.NURSE ---
pt woke up from his sleep seemingly disoriented. asking this RN and tech what had happened. pt educated on what brought him to the hospital and what has happened since being here. pt reports having no recollection of anything. pt reports that the last thing that he remembers is drinking some sort of hard liquor and injecting and unknown amount of fentanyl and maybe something else as he states that he does not remember. 1:1 assist while ambulating the the restroom. urine obtained/sent to lab. pt assisted back into bed. VS remain stable/up to date. 2L NC discontinued and placed on RA. resting on RA w/o difficulty. no sob/wob noted. respirations remain even/unlabored. pt calm/cooperative at this time.
[2024-01-19 13:23] LABS: Amphetamine Screen Urine Not Detected (Not Detect); Barbiturates, Urine Not Detected (Not Detect); Benzodiazepines Screen Urine POSITIVE (Not Detect); Buprenorphine Scr Positive (Not Detect); Cannabinoid Screen Urine Not Detected (Not Detect); Cocaine Screen Urine POSITIVE (Not Detect); Fentanyl, urine POSITIVE (Not Detect); Methadone Screen, Urine Not Detected (Not Detect); Opiate Screen Urine POSITIVE (Not Detect); Oxycodone Screen Urine Not Detected (Not Detect); Phencyclidine Screen Urine Not Detected (Not Detect)
--- NOTE | 2024-01-19 13:46 | PC.NURSE ---
pt noted to be hypotensive. provider notified/aware. otherwise vs remain stable/up to date. pt remains on RA w/o difficulty. respirations remain even/unlabored. plan of care ongoing.
--- NOTE | 2024-01-19 18:21 | PC.NURSE ---
Care Team consult placed.
--- NOTE | 2024-01-19 19:15 | PC.NURSE ---
this rn assumed care of pt. pt is a&ox4, vss, respirations even and unlabored. pt brought lucy pablo at this time.
--- NOTE | 2024-01-19 19:24 | HO.SUDE ---
Pt is a 38 year old, White, Malay speaking male with a history of ETOH and opioid use. Pt was transported [place] [facility] via ambulance secondary to altered mental status after an unwitnessed fall. Pt was administered 4 mg of Narcan. Pt reports daily IV heroin use and daily alcohol use. Pt states he drinks about 10 nips of alcohol daily. Pt unable to quantify opioid use. Pt reports he began using opiates at the age of 13/14. Pt denies SI/HI/AVH. He reports no MH hx, no medical issues. Pt reports prior history of overdose ?a few years ago?. Pt was minimally engaged. Pt was not able to maintain eye contact and was observed nodding in and out of consciousness. Pt denies any current MAT, though he expressed interest. Pt also stated he is agreeable to going to detox. T/W contacted [facility]. Intake stated [facility] census updated an hr ago and pt should call to complete intake if interested in services. Pt provided with information.
== END 2024-01-19 20:23 | disposition home or self-care (01) ==
PROVIDERS: Internal Medicine; Physician Assistant; Emergency Provider Emergency Medicine
DX: S61.411A Laceration without foreign body of right hand, initial encounter (principal); S01.91XA Laceration without foreign body of unspecified part of head, initial encounter; F10.921 Alcohol use, unspecified with intoxication delirium; R94.31 Abnormal electrocardiogram [ECG] [EKG]; R41.82 Altered mental status, unspecified; M54.2 Cervicalgia; R51.9 Headache, unspecified; M79.641 Pain in right hand; R45.1 Restlessness and agitation; F17.210 Nicotine dependence, cigarettes, uncomplicated; X58.XXXA Exposure to other specified factors, initial encounter; Y93.89 Activity, other specified; Y92.89 Other specified places as the place of occurrence of the external cause; Y99.8 Other external cause status; Z51.81 Encounter for therapeutic drug level monitoring
CPT/HCPCS: 36415; 70450; 72125; 73130; 80053; 80307; 82550; 83735; 85025; 93005; 96372; 99285; J1630; J2060; J2250

== ENCOUNTER → 2024-01-19 06:26 | Outpatient (BNV) | payer MEDICAID, SELFPAY | PROVIDERS: Emergency Provider Emergency Medicine; Visit Provider Internal Medicine Cardiovascular Disease | DX: R94.31 Abnormal electrocardiogram [ECG] [EKG] (principal) | CPT/HCPCS: 93010 ==